=== PATIENT | female | born 1955 | race Caucasian/White ===

== ENCOUNTER 2017-07-26 15:06 | Outpatient (RCR) | payer BC, OTHER | END 2017-07-30 | disposition home or self-care (01) | LOC: ONC 15:06 | PROVIDERS: ATTEND Radiology Radiation Oncology | DX: Z51.0 Encounter for antineoplastic radiation therapy (principal); C53.1 Malignant neoplasm of exocervix | CPT/HCPCS: 77300; 77301; 77334; 77338; 99215 ==

== ENCOUNTER 2017-09-08 08:55 | Outpatient (RCR) | payer BC | END 2017-10-31 | disposition home or self-care (01) | LOC: ONC 08:55 | PROVIDERS: ATTEND Radiology Radiation Oncology | DX: C53.1 Malignant neoplasm of exocervix (principal) | CPT/HCPCS: 77336; 77386 ==

== ENCOUNTER 2018-02-16 12:35 | Outpatient (CLI) | payer BC ==
[~2018-02-16] VITALS: Ht 160 cm; Wt 81.6 kg
[2018-02-16] MEDS ORDERED: methylPREDNISolone 80 MG/ML (DEPO MEDROL) VIAL ONE (13:08)
[2018-02-16 13:15] VITALS: BP 122/81
[2018-02-16 13:38] VITALS: BP 111/75
--- NOTE | 2018-02-16 22:50 | OPERATIVE REPORT ---
DATE OF SERVICE: 02/16/2018 DIAGNOSIS: Lumbar radiculopathy. PROCEDURE: Fluoroscopic guidance of thoracic epidural steroid injection, L5-S1. PROCEDURE IN DETAIL: After obtaining informed consent from the patient, the patient's chart was reviewed. The patient was then brought to the procedure room and placed in prone position, timeout was performed. The upper back was prepped with antiseptic solution and under fluoro guidance, patient's L5-S1 region was identified. The L5-S1 vertebral body was identified with fluoro guidance and approximately 2 mL of 1.5% lidocaine solution was used to anesthetize the skin down to the pedicle and under fluoro guidance using a 22-gauge 3-1/2 inch spinal needle, this tract was anesthetized all way from the pedicle down to the intralaminar space in between L5-S1. After this tract was anesthetized, then a 20-gauge Tuohy was used and involved the same tract. Using a loss of resistance syringe, the Tuohy was then directed into the epidural space under fluoro guidance. Upon obtaining loss of resistance, the syringe was exchanged for a syringe containing radiopaque dye and secondary identification of the epidural space was then obtained. At this point, the syringe was then exchanged for a syringe containing 10 mL of dexamethasone and this was injected into the epidural space, washout was identified under fluoroscopy. Needle was then flushed with the normal saline from the loss of resistance, approximately 0.5 mL and then needle removed. Bandages were applied to all procedure sites. The patient tolerated procedure well and was taken to the recovery room in stable condition. COMPLICATIONS: None. Job ID: [id number] DocumentID: [id number] Dictated Date: 02/16/2018 13:37:41 Eggs Inspector Date: 02/16/2018 22:48:47 Dictated By: DAMIEN TOUSSAINT DO
== END 2018-02-16 13:39 ==
LOC: CARD 12:35
PROVIDERS: ATTEND Pain Medicine Interventional Pain Medicine
DX: M54.16 Radiculopathy, lumbar region (principal); K21.9 Gastro-esophageal reflux disease without esophagitis; Z79.899 Other long term (current) drug therapy
CPT/HCPCS: 62323

== ENCOUNTER 2018-04-13 14:01 | Outpatient (CLI) | payer BC ==
[~2018-04-13] VITALS: Ht 162.6 cm; Wt 81.6 kg
[2018-04-13] MEDS ORDERED: methylPREDNISolone 80 MG/ML (DEPO MEDROL) VIAL ONE (14:09)
[2018-04-13 14:16] VITALS: BP 117/84
[2018-04-13 14:41] VITALS: BP 106/80
--- NOTE | 2018-04-13 21:37 | OPERATIVE REPORT ---
DATE OF SERVICE: 04/13/2018 PREOPERATIVE AND POSTOPERATIVE DIAGNOSIS: Lumbar radiculopathy. OPERATIVE PROCEDURE: Interlaminar epidural steroid injection. ANESTHESIA: Propofol. COMPLICATIONS: None CLINICAL SURGICAL COURSE: After being placed in the prone position upon a procedure table, we then administered Propofol for anesthesia. The area overlying the L4-L5 area was identified under fluoroscopy. The skin overlying the area was prepped with Betadine. The skin and the deep structures were anesthetized with approximately 5 ccs of 1% Lidocaine. A 25 gauge spinal needle was then inserted and directed down to the lamina under direct fluoroscopy guidance. It was then worked into the ligamentum flavum. Using a loss of resistance syringe, we entered the epidural space. Approximately 1.0 cc of contrast dye was injected. Proximal and distal spread was noted. This indicated that we were in the epidural space. No vascular uptake was noted. Finally, 80 mg of Depo Medrol diluted in 3 mm of preservative free saline was injected and washed out the contrast under fluoroscopy. No blood, CSF or paresthesia was noted during the procedure. The patient will be released home without any complications. Job ID: [id number] DocumentID: [id number] Dictated Date: 04/13/2018 14:40:51 Transportation Planning Technician Date: 04/13/2018 17:24:25 Dictated By: DAMIEN TOUSSAINT DO
== END 2018-04-13 14:42 | disposition home or self-care (01) ==
LOC: CARD 14:01
PROVIDERS: ATTEND Pain Medicine Interventional Pain Medicine
DX: M54.16 Radiculopathy, lumbar region (principal)
CPT/HCPCS: 62323

== ENCOUNTER 2018-07-26 13:19 | Outpatient (RCR) | payer BC ==
[2018-07-24] MEDS: ACETAMINOPHEN 325 MG TABLET PO PRN (13:50)
[2018-07-24] MEDS: diphenhydrAMINE 50 MG/ML INJ (BENADRYL) IV PRN (13:55)
[2018-07-24 14:20] LABS: HEMOGLOBIN 8.2 G/DL (11.5-16.0)
[2018-07-24] MEDS: IRON SUCROSE 200 MG/10 ML (VENOFER) VIAL IV SCH (14:40)
[2018-07-24 15:35] VITALS: BP 128/82
[~2018-07-26] VITALS: Ht 162.6 cm; Wt 81.6 kg
[~2018-07-26 13:19] MED LIST: ACETAMINOPHEN 325 MG TABLET ONE; CYCL5TAB PO; HYDR-3816 PO; IRON PO; MULT-974 PO; ONDN4T PO; PREG50CA2 PO; TRAM50TA2 PO; diphenhydrAMINE 50 MG/ML INJ (BENADRYL) ONE
[2018-07-26] MEDS: ACETAMINOPHEN 325 MG TABLET PO PRN (13:28)
[2018-07-26] MEDS: diphenhydrAMINE 50 MG/ML INJ (BENADRYL) IV PRN (13:31)
[2018-07-26] MEDS: IRON SUCROSE 200 MG/10 ML (VENOFER) VIAL IV SCH (13:50)
[2018-07-26 14:20] VITALS: BP 96/70
[2018-07-28 12:20] VITALS: BP 116/77
[2018-07-28] MEDS: IRON SUCROSE 200 MG/10 ML (VENOFER) VIAL IV SCH (13:52)
== END 2018-07-30 | disposition home or self-care (01) ==
LOC: SDC 13:19
PROVIDERS: ATTEND Family Medicine
DX: D50.9 Iron deficiency anemia, unspecified (principal)
CPT/HCPCS: 36415; 85014; 85018; 96365; 96374

== ENCOUNTER 2018-08-02 13:15 | Outpatient (RCR) | payer BC ==
[2018-07-31] MEDS: diphenhydrAMINE 50 MG/ML INJ (BENADRYL) IV PRN (13:20)
[2018-07-31] MEDS: IRON SUCROSE 200 MG/10 ML (VENOFER) VIAL IV SCH (13:33)
[2018-07-31] MEDS: ACETAMINOPHEN 325 MG TABLET PO SCH (13:43)
[2018-07-31 14:00] VITALS: BP 124/71
[~2018-08-02] VITALS: Ht 162.6 cm; Wt 81.6 kg
[~2018-08-02 13:15] MED LIST changes: -ACETAMINOPHEN 325 MG TABLET ONE; -diphenhydrAMINE 50 MG/ML INJ (BENADRYL) ONE
[2018-08-02 13:20] VITALS: BP 113/86
[2018-08-02] MEDS: IRON SUCROSE 200 MG/10 ML (VENOFER) VIAL IV SCH (13:21)
[2018-08-02] MEDS: ACETAMINOPHEN 325 MG TABLET PO SCH (13:22)
[2018-08-02] MEDS: diphenhydrAMINE 50 MG/ML INJ (BENADRYL) IV PRN (13:22)
[2018-08-02 14:01] LABS: HEMOGLOBIN 10.4 G/DL (11.5-16.0)
== END 2018-10-29 | disposition home or self-care (01) ==
LOC: SDC 13:15
PROVIDERS: ATTEND Family Medicine
DX: D50.9 Iron deficiency anemia, unspecified (principal)
CPT/HCPCS: 36415; 85014; 85018; 96365

== ENCOUNTER → 2019-09-04 | Outpatient (CLI) | payer MEDICARE, OTHER ==
[2019-09-04 10:18] LABS: BASOPHILS % (AUTO) 0 % (0-10); EOSINOPHILS # (AUTO) 0.1 10^3/uL (0.0-0.3); EOSINOPHILS % (AUTO) 2 % (0-10); HEMATOCRIT 39 % (35-52); HEMOGLOBIN 12.5 G/DL (11.5-16.0); LYMPHOCYTES # (AUTO) 0.9 X 10^3 (1.0-4.0); LYMPHOCYTES % (AUTO) 12 % (12-44); MEAN CORPUSCULAR HEMOGLOBIN 28 PG (25-34); MEAN CORPUSCULAR HGB CONC 32 G/DL (32-36); MEAN CORPUSCULAR VOLUME 86 FL (80-99); MEAN PLATELET VOLUME 10.3 FL (7.4-10.4); MONOCYTES # (AUTO) 0.6 X 10^3 (0.0-1.0); MONOCYTES % (AUTO) 8 % (0-12); NEUTROPHILS # (AUTO) 5.8 X 10^3 (1.8-7.8); NEUTROPHILS % (AUTO) 79 % (42-75); PLATELET COUNT 354 10^3/uL (130-400); RED CELL DISTRIBUTION WIDTH 19.1 % (10.0-14.5); WHITE BLOOD COUNT 7.4 10^3/uL (4.3-11.0)
[2019-09-04 10:39] LABS: ALANINE AMINOTRANSFERASE 21 U/L (0-55); ALBUMIN 4.4 GM/DL (3.2-4.5); ALKALINE PHOSPHATASE 95 U/L (40-136); BILIRUBIN,TOTAL 0.3 MG/DL (0.1-1.0); BUN/CREATININE RATIO 22; CALCIUM 10.1 MG/DL (8.5-10.1); CARBON DIOXIDE 22 MMOL/L (21-32); CHLORIDE 104 MMOL/L (98-107); CREATININE SERUM 0.86 MG/DL (0.60-1.30); GFR ESTIMATED > 60; GLUCOSE 98 MG/DL (70-105); POTASSIUM 4.3 MMOL/L (3.6-5.0); SODIUM 139 MMOL/L (135-145); TOTAL PROTEIN 7.2 GM/DL (6.4-8.2)
--- NOTE | 2019-09-06 09:44 | Diagnostic Imaging Report ---
PET/CT. INDICATION: Cervical cancer. EXAMINATION: After intravenous administration of 12.97 mCi of F18-FDG, a series of overlapping emission and transmission PET images was obtained. In the coronal, transaxial and sagittal planes, the area imaged extended from the skull base through the upper thighs. FINDINGS: The previous PET/CT exam performed at [facility] in [place], [place], on 09/18/2018 was reviewed. That study failed to show any sign of neoplastic disease related to the patient's diagnosis of cervical carcinoma. In the interval since the prior exam however, small foci of hypermetabolic activity have developed in the left costovertebral junctions of the seventh and eighth ribs. The maximum SUV of these areas of abnormal uptake is 5.0. The CT images failed to show any sign of fracture or of bony destruction in this area as possibly these findings could be post traumatic in nature. Even so, neoplastic disease should still be the primary concern. The overall appearance of the PET/CT exam is otherwise no different. There is no other hypermetabolic activity to suggest the presence of malignancy. The CT images failed to show any sign of an acute abnormality. IMPRESSION: 1. In the interval since the prior study, small hypermetabolic foci involving the left costovertebral junctions of the seventh and eighth ribs have developed. While these could be post traumatic in nature, the possibility that they are neoplastic should certainly be considered. 2. There is no other hypermetabolic activity to indicate the presence of neoplastic disease. Dictated by: Dictated on workstation # [id number]
== END ==
LOC: RAD 08:12
PROVIDERS: ATTEND Internal Medicine Hematology & Oncology
DX: C53.1 Malignant neoplasm of exocervix (principal)
CPT/HCPCS: 36415; 80053; 83615; 85025